=== PATIENT | female | born 2000 | race Caucasian/White ===

== ENCOUNTER 2021-04-21 09:47 | Emergency (ER) | payer SELFPAY ==
[2021-04-21 10:25] LABS: Urine Blood Negative (Negative); Urine Glucose Negative (Negative); Urine Protein Negative (Negative); Urine pH 7.5 (5.0-7.0)
[2021-04-21 10:28] LABS: Hematocrit 40.8 % (36.0-45.0); Lymphocytes % 25.5 % (15.3-44.8); MPV 7.7 fL (7.6-11.3)
[2021-04-21] MEDS ORDERED: ONDANSETRON 4 MG/2 ML VIAL ONE ×2 (10:47→11:31)
[2021-04-21] MEDS ORDERED: MORPHINE 2 MG/ML SYR ONE ×2 (10:47→11:31)
[2021-04-21 10:56] LABS: BUN Blood Urea Nitrogen 12 mg/dL (7-18); Bicarbonate 27 mmol/L (21-32); Glucose Level 92 mg/dL (74-106); Potassium 4.2 mmol/L (3.5-5.1); Sodium Level 137 mmol/L (136-145)
[2021-04-21 10:58] LABS: HCG, Quantitative < 1 mIU/mL (1-3)
--- NOTE | 2021-04-21 11:28 | RAD REPORT ---
EXAM DESCRIPTION: CTAbdomen Pelvis W Contrast - 04/21/2021 11:22 am CLINICAL HISTORY: Abdominal pain. ABD PAIN COMPARISON: No comparisons TECHNIQUE: Biphasic CT imaging of the abdomen and pelvis was performed with 100 ml non-ionic IV cont rast. All CT scans are performed using dose optimization technique as appropriate and may include automated exposure control or mA/KV adjustment according to patient size. FINDINGS: The lung bases are clear. The liver, spleen, pancreas, adrenal glands and kidneys are within normal limits. No bowel obstruction, free air, free fluid or abscess. The appendix is normal. No evidence of signi ficant lymphadenopathy. No suspicious bony findings. IMPRESSION: No acute intra-abdominal or pelvic finding.
[2021-04-21] MEDS ORDERED: DIPHENHYDRAMINE 50 MG/ML VIAL ONE (11:31)
[2021-04-21] MEDS ORDERED: KETOROLAC 30 MG/ML INJ ONE (13:29)
--- NOTE | 2021-04-21 14:00 | RAD REPORT ---
EXAM DESCRIPTION: US - Transvaginal Study Probe - 04/21/2021 1:36 pm CLINICAL HISTORY: ABD PAIN Pelvic pain. COMPARISON: No comparisons FINDINGS: The uterus is normal in size, shape and echotexture. The uterus measures 8.7 cm. The endometrial stripe measures 14 mm, within normal limits Neither ovary was visualized. Small volume of pelvic free fluid. IMPRESSION: Neither ovary visualized due to overlying bowel gas. The uterus is within normal limits. Small volume of free fluid is probably physiologic.
--- NOTE | 2021-04-21 14:04 | ER ---
Nurse's Notes [facility] Name: Elodia Smith Age: 21 yrs Sex: Female : 2000 Arrival Date: 04/21/2021 Time: 09:48 Bed 17 Private MD: Diagnosis: Abdominal pain, Generalized Presentation: 04/21 09:51 Chief complaint: Patient states: "I am a few days late on my period and I took 6 ab2 testes, 4 were positive, 2 were negative. I've been sick for 3 days now and my stomach hurts." Pt c/o n/v and lower abdominal pain. Coronavirus screen: Vaccine status: Patient reports receiving the 2nd dose of the covid vaccine. Client denies travel out of the [place] in the last 14 days. At this time, the client does not indicate any symptoms associated with coronavirus-19. Ebola Screen: Patient negative for fever greater than or equal to 101.5 degrees Fahrenheit, and additional compatible Ebola Virus Disease symptoms Patient denies exposure to infectious person. Patient denies travel to an Ebola-affected area in the 21 days before illness onset. No symptoms or risks identified at this time. Initial Sepsis Screen: Does the patient meet any 2 criteria? No. Patient's initial sepsis screen is negative. Does the patient have a suspected source of infection? No. Patient's initial sepsis screen is negative. Risk Assessment: Do you want to hurt yourself or someone else? Patient reports no desire to harm self or others. Onset of symptoms is unknown. 09:51 Method Of Arrival: Wheelchair ab2 09:51 Acuity: ZULEIKA 3 ab2 Triage Assessment: 09:56 General: Appears in no apparent distress. uncomfortable, Behavior is calm, cooperative, ab2 appropriate for age. Pain: Complains of pain in right lower quadrant and left lower quadrant Pain currently is 7 out of 10 on a pain scale. GI: Reports lower abdominal pain, nausea, vomiting. [employer]: 10:39 1, LMP 03/17/2021 ag7 Historical: - Allergies: 09:55 No Known Allergies; ab2 - Home Meds: 09:55 None [Active]; ab2 - PMHx: 09:55 None; ab2 - PSHx: 09:55 section; ab2 - Immunization history:: Adult Immunizations up to date. - Social history:: Smoking status: Patient denies any tobacco usage or history of. Screenin:38 Abuse screen: Denies threats or abuse. Nutritional screening: No deficits noted. ag7 Tuberculosis screening: No symptoms or risk factors identified. Fall Risk None identified. Assessment: 10:29 General: Appears in no apparent distress. well groomed, Behavior is calm, cooperative, ag7 appropriate for age. Pain: Complains of pain in abdomen Pain does not radiate. Pain currently is 7 out of 10 on a pain scale. Quality of pain is described as sharp, Pain began suddenly, patient reports pain when breathing inwards Is intermittent. Neuro: Level of Consciousness is awake, alert, obeys commands, Oriented to person, place, time, situation, Appropriate for age Buttonhole Marker are equal bilaterally Moves all extremities. Cardiovascular: Heart tones S1 S2 present. Respiratory: Breath sounds are clear bilaterally. GI: Abdomen is round obese, Last BM was April 20, 2021. Last meal was April 20, 2021. Bowel sounds present X 4 quads. Abd is soft Abdomen is tender to palpation in umbilical area, and abdomen diffusely Reports nausea. 11:45 Reassessment: Patient return from cat scan at or about 1130 with chest pain, increased ag7 abd pain 5/10, Benadryl ordered per provider with morphine and zofran. Patient is alert and awake, resp even regular and unlabored, at bedside. 12:30 Reassessment: Patient and/or family updated on plan of care and expected duration. Pain ag7 level reassessed. Patient is alert, oriented x 3, equal unlabored respirations, skin warm/dry/pink. Patient complain abdominal pain is increased 5.5/10. 13:30 Reassessment: Patient appears in no apparent distress at this time. Patient and/or jd3 family updated on plan of care and expected duration. Pain level reassessed. Patient is alert, oriented x 3, equal unlabored respirations, skin warm/dry/pink. Vital Signs: 09:51 BP 126 / 82; Pulse 92; Resp 16; Temp 98.1; Pulse Ox 98% ; Weight 92.99 kg; Height 5 ft. ab2 7 in. (170.18 cm); Pain 7/10; 10:06 BP 128 / 72; Pulse 68; Resp 16 S; Pulse Ox 95% on R/A; Pain 7/10; ag7 11:05 BP 124 / 76; Pulse 66; Resp 16 S; Pulse Ox 97% on R/A; Pain 4/10; ag7 11:30 Pain 4/10; ag7 12:00 BP 113 / 75; Pulse 65; Resp 16; Pulse Ox 94% on R/A; Pain 5/10; ag7 14:23 BP 110 / 69; Pulse 68; Resp 16; Pulse Ox 100% on R/A; Pain 5/10; ag7 09:51 Body Mass Index 32.11 (92.99 kg, 170.18 cm) ab2 ED Course: 09:48 Patient arrived in ED. as 09:49 Shefali Zuluaga FNP-C [facility]. kb 09:49 Cristopher Quinones DO is Attending Physician. kb 09:55 Triage completed. ab2 09:56 Arm band placed on right wrist. ab2 10:28 Brie Ramirez, TAMMIE is Primary Nurse. ag7 10:28 Inserted saline lock: 20 gauge in right antecubital area, using aseptic technique. IV ag7 is patent, is intact, Flushed right antecubital saline lock 10 ml NS. 10:39 Patient has correct armband on for positive identification. Bed in low position. Call ag7 light in reach. 11:22 CT Abd/Pelvis - IV Contrast Only In Process Unspecified. EDMS 13:28 US Transvaginal Study (Probe) In Process Unspecified. EDMS 14:24 No provider procedures requiring assistance completed. ag7 14:26 IV discontinued, intact, bleeding controlled, No redness/swelling at site. Pressure ag7 dressing applied. Administered Medications: 10:52 Drug: Zofran (Ondansetron) 4 mg Route: IVP; Site: right antecubital; ag7 11:30 Follow up: Response: No adverse reaction; Marked relief of symptoms ag7 12:14 Follow up: Response: No adverse reaction ag7 10:53 Drug: morphine 2 mg {Note: RASS 0.} Route: IVP; Site: right antecubital; ag7 11:30 Follow up: Pain 4/10; Response: No adverse reaction; Pain is decreased; RASS: Alert and ag7 Calm (0) 11:42 Drug: morphine 2 mg {Note: rass 0.} Route: IVP; Site: right antecubital; ag7 12:14 Follow up: Response: No adverse reaction; RASS: Light sedation (-2) ag7 11:42 Drug: Zofran (Ondansetron) 4 mg Route: IVP; Site: right antecubital; ag7 12:40 Follow up: Response: No adverse reaction jd3 11:42 Drug: Benadryl (diphenhydrAMINE) 12.5 mg Route: IVP; Site: right antecubital; ag7 12:14 Follow up: Response: No adverse reaction ag7 13:49 Drug: Ketorolac 30 mg Route: IVP; Site: right antecubital; jd3 14:11 Follow up: Response: No adverse reaction; Pain is decreased; RASS: Alert and Calm (0) ag7 Outcome: 14:04 Discharge ordered by . kb 14:24 Discharged to home ambulatory. ag7 14:24 Condition: stable 14:24 Discharge instructions given to patient, significant other, Instructed on discharge instructions, follow up and referral plans. medication usage, Demonstrated understanding of instructions, follow-up care, medications, Prescriptions given X 2. 14:26 Patient left the ED. ag7 Signatures: Dispatcher [employer] EDMS Shefali Zuluaga, ALEXANDR-C PHONOGRAPH NEEDLE TIP MAKER-Minnie Benjamin Jonathon, RN RN Akin Trinh Angela, RN RN ag7
--- NOTE | 2021-04-21 14:04 | EDPHYS ---
Physician Documentation [facility] Name: Elodia Smith Age: 21 yrs Sex: Female : 2000 Arrival Date: 04/21/2021 Time: 09:48 Bed 17 Private MD: ED Physician Cristopher Quinones HPI: 04/21 14:19 This 21 yrs old Female presents to ER via Wheelchair with complaints of Abdominal Pain, kb Nausea. 14:19 The patient presents with abdominal pain that is diffuse. The patient has not recently kb seen a physician. 14:19 Onset: The symptoms/episode began/occurred 3 day(s) ago. The symptoms do not radiate. kb Associated signs and symptoms: Pertinent positives: nausea and vomiting, Pertinent negatives: fever. The symptoms are described as constant. Modifying factors: The symptoms are alleviated by nothing, the symptoms are aggravated by nothing. Severity of pain: At its worst the pain was moderate in the emergency department the pain is unchanged. The patient has not experienced similar symptoms in the past. Pt reports diffuse abd pain, nausea and vomiting for 3 days. States she is 5 days late on her period so isn't sure if she is or not. 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 - Social history:: Smoking status: Patient denies any tobacco usage or history of. ROS: 14:18 Constitutional: Negative for fever, chills, and weight loss. kb 14:18 Abdomen/GI: Positive for abdominal pain, nausea and vomiting. 14:18 All other systems are negative. Exam: 14:18 Constitutional: This is a well developed, well nourished patient who is awake, alert, kb and in no acute distress. Head/Face: Normocephalic, atraumatic. ENT: Moist Mucous membranes Cardiovascular: Regular rate and rhythm with a normal S1 and S2. No gallops, murmurs, or rubs. No pulse deficits. Respiratory: Respirations even and unlabored. No increased work of breathing. Talking in full sentences Skin: Warm, dry with normal turgor. Normal color. MS/ Extremity: Pulses equal, no cyanosis. Neurovascular intact. Full, normal range of motion. Neuro: Awake and alert, GCS 15, oriented to person, place, time, and situation. Moves all extremities. Normal gait. Psych: Awake, alert, with orientation to person, place and time. Behavior, mood, and affect are within normal limits. 14:18 Abdomen/GI: Inspection: abdomen appears normal, Bowel sounds: normal, Palpation: soft, in all quadrants, moderate abdominal tenderness, in all quadrants. Vital Signs: 09:51 BP 126 / 82; Pulse 92; Resp 16; Temp 98.1; Pulse Ox 98% ; Weight 92.99 kg; Height 5 ft. ab2 7 in. (170.18 cm); Pain 7/10; 10:06 BP 128 / 72; Pulse 68; Resp 16 S; Pulse Ox 95% on R/A; Pain 7/10; ag7 11:05 BP 124 / 76; Pulse 66; Resp 16 S; Pulse Ox 97% on R/A; Pain 4/10; ag7 11:30 Pain 4/10; ag7 12:00 BP 113 / 75; Pulse 65; Resp 16; Pulse Ox 94% on R/A; Pain 5/10; ag7 14:23 BP 110 / 69; Pulse 68; Resp 16; Pulse Ox 100% on R/A; Pain 5/10; ag7 09:51 Body Mass Index 32.11 (92.99 kg, 170.18 cm) ab2 MDM: 09:52 Patient medically screened. kb 14:16 Data reviewed: vital signs, nurses notes. Data interpreted: Pulse oximetry: on room air kb is 94 %. Interpretation: normal. Counseling: I had a detailed discussion with the patient and/or guardian regarding: the historical points, exam findings, and any diagnostic results supporting the discharge/admit diagnosis, lab results, radiology results, the need for outpatient follow up, a family practitioner, to return to the emergency department if symptoms worsen or persist or if there are any questions or concerns that arise at home. ED course: Pt sleeping comfortably when I went in to discuss diagnostic results. Pt educated on results and need for outpatient follow up. Pt in agreement with plan of care. . 03/10 09:52 Order name: Abo/rh Typing; Complete Time: 11:21 kb 04/21 09:52 Order name: Basic Metabolic Panel; Complete Time: 11:00 kb 04/21 09:52 Order name: CBC with Diff; Complete Time: 10:36 kb 04/21 09:52 Order name: Quantitative Hcg; Complete Time: 11:00 kb 04/21 10:25 Order name: Urine Dipstick-Ancillary; Complete Time: 10:28 EDMS 04/21 10:28 Order name: Urine --Ancillary (enter results); Complete Time: 10:49 em1 04/21 09:52 Order name: IV Saline Lock; Complete Time: 10:28 kb 04/21 11:00 Order name: CT Abd/Pelvis - IV Contrast Only; Complete Time: 11:31 kb 04/21 12:13 Order name: US Transvaginal Study (Probe); Complete Time: 14:02 kb 04/21 09:52 Order name: Labs collected and sent; Complete Time: 10:28 kb 04/21 09:52 Order name: NPO; Complete Time: 10:04 kb 04/21 09:52 Order name: Urine Dipstick-Ancillary (obtain specimen); Complete Time: 10:28 kb 04/21 09:52 Order name: Urine Test (obtain specimen); Complete Time: 10:28 kb Administered Medications: 10:52 Drug: Zofran (Ondansetron) 4 mg Route: IVP; Site: right antecubital; ag7 11:30 Follow up: Response: No adverse reaction; Marked relief of symptoms ag7 12:14 Follow up: Response: No adverse reaction ag7 10:53 Drug: morphine 2 mg {Note: RASS 0.} Route: IVP; Site: right antecubital; ag7 11:30 Follow up: Pain 4/10; Response: No adverse reaction; Pain is decreased; RASS: Alert and ag7 Calm (0) 11:42 Drug: morphine 2 mg {Note: rass 0.} Route: IVP; Site: right antecubital; ag7 12:14 Follow up: Response: No adverse reaction; RASS: Light sedation (-2) ag7 11:42 Drug: Zofran (Ondansetron) 4 mg Route: IVP; Site: right antecubital; ag7 12:40 Follow up: Response: No adverse reaction jd3 11:42 Drug: Benadryl (diphenhydrAMINE) 12.5 mg Route: IVP; Site: right antecubital; ag7 12:14 Follow up: Response: No adverse reaction ag7 13:49 Drug: Ketorolac 30 mg Route: IVP; Site: right antecubital; jd3 14:11 Follow up: Response: No adverse reaction; Pain is decreased; RASS: Alert and Calm (0) ag7 Disposition: 20:10 Co-signature as Attending Physician, Cristopher Quinones DO I agree with the assessment and ms3 plan of care. Disposition Summary: 04/21/21 14:04 Discharge Ordered Location: Home kb Condition: Stable kb Diagnosis - Abdominal pain, Generalized kb Followup: kb - With: Emergency Department - When: As needed - Reason: Worsening of condition Followup: kb - With: Private Physician - When: 2 - 3 days - Reason: Recheck today's complaints, Continuance of care, Re-evaluation by your physician Discharge Instructions: - Discharge Summary Sheet kb - Abdominal Pain, Adult, [id number] kb Forms: - Medication Reconciliation Form kb - Thank You Letter kb - Antibiotic Education kb - Prescription Opioid Use kb Prescriptions: - Zofran 4 mg Oral Tablet - take 1 tablet by ORAL route every 6 hours As needed; 20 tablet; Refills: 0, kb Product Selection Permitted - dicyclomine 20 mg Oral Tablet - take 1 tablet by ORAL route 4 times per day As needed; 20 tablet; Refills: 0, kb Product Selection Permitted Signatures: Dispatcher [employer] Shefali Lopez, MANAGER INVESTIGATIONS-C MANAGER INVESTIGATIONS-Freddy Hicks RN RN Cristopher Nicole DO DO ms3 Akin Caldwell Angela, RN RN ag7 Corrections: (The following items were deleted from the chart) 14:20 14:18 Abdomen/GI: Positive for abdominal pain, nausea, kb kb
[2021-04-21 14:43] VITALS: TEMP 98.1
[2021-04-21 14:44] VITALS: BP 110/69; O2SAT 100
== END 2021-04-21 14:26 | disposition home or self-care (01) ==
LOC: ER 09:47
DX: R10.84 Generalized abdominal pain (principal); R11.2 Nausea with vomiting, unspecified
CPT/HCPCS: 36415; 74177; 76830; 80048; 81003; 81025; 84702; 85025; 86900; 86901; 96374; 96375; 99284; J1200; J2270; J2405; Q9967

== ENCOUNTER 2022-07-14 15:32 | Emergency (ER) | payer BC ==
[2022-07-14] MEDS ORDERED: NA CHLORIDE 0.9% 1,000 ML ONE (16:39)
[2022-07-14 17:19] LABS: Specific Gravity 1.024 (1.005-1.030)
[2022-07-14 17:22] LABS: Specific Gravity 1.024 (1.005-1.030); Urine Bacteria <20 /HPF (<20); Urine Bilirubin NEGATIVE (Negative); Urine Blood 1+ (Negative); Urine Clarity Turbid (Clear); Urine Color Yellow (Yellow); Urine Glucose NEGATIVE (Negative); Urine Mucus 1+ /HPF (None Seen); Urine Protein TRACE (Negative); Urine Urobilinogen Normal (Normal); Urine pH 5.5 (5.0-7.0)
[2022-07-14 17:37] LABS: SARS-CoV-2 Antigen Rapid Res Negative (Negative)
[2022-07-14 17:43] LABS: Absolute Lymphocytes (CBC) 1.1 K/uL (0.7-4.9); Hematocrit 39.2 % (36.0-45.0); Lymphocytes % 8.5 % (15.3-44.8); MCV 85.2 fL (80-100); MPV 7.3 fL (7.6-11.3)
[2022-07-14 17:58] LABS: Potassium 3.7 mEq/L (3.5-5.1)
[2022-07-14] MEDS ORDERED: KETOROLAC 30 MG/ML INJ ONE (18:26)
--- NOTE | 2022-07-14 18:30 | ER ---
Nurse's Notes [facility] Name: Elodia Arenas Age: 22 yrs Sex: Female : 2000 Arrival Date: 07/14/2022 Time: 15:32 Bed 15 Private MD: Diagnosis: Acute tonsillitis, unspecified Presentation: 07/14 15:39 Chief complaint: Patient states: fever, STEEL and body aches that began yesterday. ss Coronavirus screen: Client denies travel out of the [place] in the last 14 days. Ebola Screen: Patient denies exposure to infectious person. Patient denies travel to an Ebola-affected area in the 21 days before illness onset. Initial Sepsis Screen: Does the patient meet any 2 criteria? No. Patient's initial sepsis screen is negative. Does the patient have a suspected source of infection? No. Patient's initial sepsis screen is negative. Risk Assessment: Do you want to hurt yourself or someone else? Patient reports no desire to harm self or others. Onset of symptoms was July 13, 2022. 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 - Social history:: Smoking status: Patient denies any tobacco usage or history of. Screenin:00 [facility] ED Fall Risk Assessment (Adult) History of falling in the last 3 months, nj1 including since admission No falls in past 3 months (0 pts) Confusion or Disorientation No (0 pts) Intoxicated or Sedated No (0 pts) Impaired Gait No (0 pts) Mobility Assist Device Used No (0 pt) Altered Elimination No (0 pt) Score/Fall Risk Level 0 - 2 = Low Risk Oriented to surroundings, Maintained a safe environment, Hourly rounding (assess needs \T\ fall precautionary measures) done. Abuse screen: Denies threats or abuse. Denies injuries from another. Nutritional screening: No deficits noted. Tuberculosis screening: No symptoms or risk factors identified. Assessment: 16:30 General: Appears in no apparent distress. comfortable, Behavior is calm, cooperative, nj1 appropriate for age. Pain: Complains of pain in Generalized Pain currently is 8 out of 10 on a pain scale. Neuro: Level of Consciousness is awake, alert, obeys commands, Oriented to person, place, time, situation. Cardiovascular: Patient's skin is warm and dry. Respiratory: Airway is patent Respiratory effort is even, unlabored. 16:30 EENT: Reports Sore throat. nj1 17:30 Reassessment: Patient appears in no apparent distress at this time. Patient and/or nj1 family updated on plan of care and expected duration. Pain level reassessed. Patient is alert, oriented x 3, equal unlabored respirations, skin warm/dry/pink. Pain: Complains of pain in Generalized Pain currently is 8 out of 10 on a pain scale. 19:59 Reassessment: Patient appears in no apparent distress at this time. Patient and/or nj1 family updated on plan of care and expected duration. Pain level reassessed. Patient is alert, oriented x 3, equal unlabored respirations, skin warm/dry/pink. Patient states feeling better. Patient states symptoms have improved. Vital Signs: 15:40 BP 106 / 62; Pulse 110; Resp 16; Temp 99.6(O); Pulse Ox 97% on R/A; Weight 99.79 kg; ss Height 5 ft. 7 in. ; Pain 8/10; 17:43 BP 113 / 74; Pulse 105; Resp 16; Pulse Ox 97% ; nj1 18:24 Pulse 106; Resp 18; Temp 100.1(O); Pulse Ox 96% ; nj1 19:59 Temp 98.6(O); nj1 15:40 Body Mass Index 34.46 (99.79 kg, 170.18 cm) ss 15:40 Pain Scale: Adult ss ED Course: 15:35 Patient arrived in ED. mr 15:35 Shefali [facility]uluaga [facility]NP-C [facility]. kb 15:35 Vinay Giles MD is Attending Physician. kb 15:40 Triage completed. ss 15:40 Arm band placed on right wrist. ss 16:18 Jailyn Perez, TAMMIE is Primary Nurse. nj1 16:30 Patient has correct armband on for positive identification. Bed in low position. Call [facility] light in reach. 17:30 Inserted saline lock: 22 gauge in right antecubital area, using aseptic technique. nj1 Blood collected. 19:59 No provider procedures requiring assistance completed. IV discontinued, intact, nj1 bleeding controlled. Administered Medications: 17:30 Drug: NS 0.9% IV 1000 ml Route: IV; Rate: 1000 ml; Site: right antecubital; nj1 19:30 Follow up: Response: No adverse reaction; IV Status: Completed infusion; IV Intake: nj1 1000ml 18:22 Drug: Ketorolac IVP 15 mg Route: IVP; Site: right antecubital; nj1 19:59 Follow up: Response: No adverse reaction nj1 18:54 Drug: Amoxicillin-Clavulanate PO 875 mg Route: PO; nj1 19:59 Follow up: Response: No adverse reaction nj1 18:54 Drug: Acetaminophen PO 1000 mg Route: PO; nj1 19:59 Follow up: Response: No adverse reaction; Temperature is decreased nj1 Medication: 19:59 VIS not applicable for this client. nj1 Intake: 19:30 IV: 1000ml; Total: 1000ml. nj1 Outcome: 18:30 Discharge ordered by . irish 19:59 Discharged to home ambulatory. nj1 19:59 Condition: stable 19:59 Discharge instructions given to patient, Instructed on discharge instructions, follow up and referral plans. medication usage, Demonstrated understanding of instructions, follow-up care, medications, Prescriptions given X 1. 20:00 Patient left the ED. nj1 Signatures: Shefali Zuluaga, OCCUPATIONAL HEALTH PHYSICIAN-C OCCUPATIONAL HEALTH PHYSICIAN-Ckb Courtney Lennon Deepthi Duncan RN RN Jailyn Perez RN RN nj1 Corrections: (The following items were deleted from the chart) 17:44 16:30 Pain: Complains of pain in Generalized nj1 nj1 20:35 20:34 Patient left the ED. nj1 nj1
--- NOTE | 2022-07-14 18:31 | EDPHYS ---
Physician Documentation [facility] Name: Elodia Arenas Age: 22 yrs Sex: Female : 2000 Arrival Date: 07/14/2022 Time: 15:32 Bed 15 Private MD: ED Physician Vinay Giles HPI: 07/14 15:42 This 22 yrs old Female presents to ER via Ambulatory with complaints of Flu Symptoms. kb 15:42 The patient or guardian reports flu symptoms, low-grade fever, myalgias, no appetite. kb Onset: The symptoms/episode began/occurred yesterday. Severity of symptoms: At their worst the symptoms were moderate, in the emergency department the symptoms are unchanged. Modifying factors: The symptoms are alleviated by nothing, the symptoms are aggravated by nothing. Associated signs and symptoms: Pertinent positives: earache, fever, sore throat. The patient has not experienced similar symptoms in the past. The patient has not recently seen a physician. Pt presents for fatigue, malaise, weakness, bodyaches, sore throat, ear pain, headache, and fever that started yesterday. . 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 - Social history:: Smoking status: Patient denies any tobacco usage or history of. ROS: 15:42 Cardiovascular: Negative for chest pain, palpitations, and edema. kb 15:42 Constitutional: Positive for body aches, chills, fatigue, fever, malaise. 15:42 ENT: Positive for ear pain, sore throat. 15:42 Neuro: Positive for headache. Exam: 15:43 Constitutional: This is a well developed, well nourished patient who is awake, alert, kb and in no acute distress. Head/Face: Normocephalic, atraumatic. Cardiovascular: Regular rate and rhythm with a normal S1 and S2. No gallops, murmurs, or rubs. No pulse deficits. Respiratory: Respirations even and unlabored. No increased work of breathing. Talking in full sentences Abdomen/GI: Soft, non-tender. No distention Skin: Warm, dry with normal turgor. Normal color. MS/ Extremity: Pulses equal, no cyanosis. Neurovascular intact. Full, normal range of motion. Neuro: Awake and alert, GCS 15, oriented to person, place, time, and situation. Moves all extremities. Normal gait. 15:43 ENT: TM's: are normal, Posterior pharynx: Airway: normal, no evidence of obstruction, Tonsils: bilaterally enlarged, with erythema, with exudate, Uvula: normal, midline, swelling, that is mild, that is moderate, erythema, that is moderate, exudate, that is mild, that is moderate. Vital Signs: 15:40 BP 106 / 62; Pulse 110; Resp 16; Temp 99.6(O); Pulse Ox 97% on R/A; Weight 99.79 kg; ss Height 5 ft. 7 in. ; Pain 8/10; 17:43 BP 113 / 74; Pulse 105; Resp 16; Pulse Ox 97% ; nj1 18:24 Pulse 106; Resp 18; Temp 100.1(O); Pulse Ox 96% ; nj1 19:59 Temp 98.6(O); nj1 15:40 Body Mass Index 34.46 (99.79 kg, 170.18 cm) ss 15:40 Pain Scale: Adult ss MDM: 15:35 Patient medically screened. kb 15:43 Data reviewed: vital signs, nurses notes. kb 15:43 Differential Diagnosis: Other flu, covid, mono, strep, uri, viral syndrome. kb 18:29 Counseling: I had a detailed discussion with the patient and/or guardian regarding: the kb historical points, exam findings, and any diagnostic results supporting the discharge/admit diagnosis, lab results, radiology results, the need for outpatient follow up, a family practitioner, to return to the emergency department if symptoms worsen or persist or if there are any questions or concerns that arise at home. 07/14 15:41 Order name: CBC with Diff; Complete Time: 17:45 kb 07/14 15:41 Order name: Basic Metabolic Panel; Complete Time: 18:02 kb 07/14 15:41 Order name: Flu; Complete Time: 17:51 kb 07/14 15:41 Order name: [place] Screen Profile; Complete Time: 18:14 kb 07/14 15:41 Order name: Strep; Complete Time: 17:42 kb 07/14 15:41 Order name: SARS-COV-2 Antigen Rapid; Complete Time: 17:42 kb 07/14 15:41 Order name: Test, Urine; Complete Time: 17:30 kb 07/14 15:41 Order name: Urinalysis w/ reflexes; Complete Time: 17:30 kb 07/14 17:27 Order name: Urine Culture [facility] 07/14 17:37 Order name: Throat Culture [facility] 07/14 15:41 Order name: IV Start; Complete Time: 17:45 kb Administered Medications: 17:30 Drug: NS 0.9% IV 1000 ml Route: IV; Rate: 1000 ml; Site: right antecubital; nj1 19:30 Follow up: Response: No adverse reaction; IV Status: Completed infusion; IV Intake: nj1 1000ml 18:22 Drug: Ketorolac IVP 15 mg Route: IVP; Site: right antecubital; nj1 19:59 Follow up: Response: No adverse reaction nj1 18:54 Drug: Amoxicillin-Clavulanate PO 875 mg Route: PO; nj1 19:59 Follow up: Response: No adverse reaction nj1 18:54 Drug: Acetaminophen PO 1000 mg Route: PO; nj1 19:59 Follow up: Response: No adverse reaction; Temperature is decreased nj1 Disposition Summary: 07/14/22 18:30 Discharge Ordered Location: Home kb Condition: Stable kb Diagnosis - Acute tonsillitis, unspecified kb Followup: kb - With: Emergency Department - When: As needed - Reason: Worsening of condition Followup: kb - With: Private Physician - When: 2 - 3 days - Reason: Recheck today's complaints, Continuance of care, Re-evaluation by your physician Discharge Instructions: - Discharge Summary Sheet kb - Tonsillitis, [id number] kb Forms: - Medication Reconciliation Form kb - Thank You Letter kb - Antibiotic Education kb - Prescription Opioid Use kb Prescriptions: - Augmentin 875-125 mg Oral Tablet - take 1 tablet by ORAL route every 12 hours for 10 days; 20 tablet; Refills: 0, kb Product Selection Permitted Signatures: Dispatcher [employer] EDShefali Clifford FNP-C FNP-Ckb Smirch, Shelby RN RN ss Jailyn Perez RN RN nj1
[2022-07-14] MEDS ORDERED: AMOX/K CLAV 875 MG TAB ONE (18:44)
[2022-07-14] MEDS ORDERED: ACETAMINOPHEN 500 MG TAB ONE (18:44)
== END 2022-07-14 20:34 | disposition home or self-care (01) ==
LOC: ER 15:32
DX: J03.90 Acute tonsillitis, unspecified (principal); Z20.822 Contact with and (suspected) exposure to COVID-19
CPT/HCPCS: 96361; 87070; 87088; 85025; 81001; 87086; 80048; 36415; 86308; 81025; 87081; 87804 ×2; 96374; 99284; 87811; J7030

== ENCOUNTER → 2023-04-01 | Emergency (ER) | payer BC, SELFPAY ==
[~2023-04-01] MED LIST: DIPHENHYDRAMINE 50 MG/ML VIAL ONE; KETOROLAC 30 MG/ML INJ ONE; METOCLOPRAMIDE 10 MG/2mL INJ ONE; NA CHLORIDE 0.9% 1,000 ML ONE; NA CHLORIDE 0.9% 100 ML ONE; ONDANSETRON 4 MG/2 ML VIAL ONE
[2023-04-01 23:08] LABS: Absolute Lymphocytes (CBC) 2.5 K/uL (0.7-4.9); Albumin 3.7 g/dL (3.4-5.0); Bilirubin Total 0.4 mg/dL (0.2-1.0); Hematocrit 39.7 % (36.0-45.0); Lymphocytes % 26.5 % (15.3-44.8); MCV 85.3 fL (80-100); MPV 7.6 fL (7.6-11.3); Platelets 365 thou/uL (152-406); Potassium 3.8 mEq/L (3.5-5.1); Protein, Total 7.8 g/dL (6.4-8.2); RBC Red Blood Cell Count 4.65 M/uL (3.86-4.86)
[2023-04-01 23:19] LABS: Specific Gravity 1.013 (1.005-1.030); Urine Bacteria None Seen /HPF (<20); Urine Bilirubin NEGATIVE (Negative); Urine Blood 1+ (Negative); Urine Clarity Clear (Clear); Urine Color Colorless (Yellow); Urine Glucose NEGATIVE (Negative); Urine Mucus Slight /HPF (None Seen); Urine Protein NEGATIVE (Negative); Urine RBC None Seen /HPF (None Seen); Urine Urobilinogen Normal (Normal)
[2023-04-01 23:20] LABS: Specific Gravity 1.014 (1.005-1.030)
--- NOTE | 2023-04-02 00:10 | EDPHYS ---
Physician Documentation [facility] Name: Elodia Arenas Age: 23 yrs Sex: Female : 2000 Arrival Date: 04/01/2023 Time: 21:55 Bed 5 Private MD: ED Physician Feliberto Rocha HPI: 04/01 22:39 This 23 yrs old Female presents to ER via Ambulatory with complaints of Abdominal Pain. sb4 22:39 The patient presents with abdominal pain in the left upper quadrant. Onset: The sb4 symptoms/episode began/occurred this morning. The symptoms do not radiate. Associated signs and symptoms: Pertinent positives: nausea and vomiting. The symptoms are described as sharp. Modifying factors: The symptoms are alleviated by nothing, the symptoms are aggravated by breathing deeply, movement, pressure. The patient has not experienced similar symptoms in the past. The patient has not recently seen a physician. 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 - Social history:: Smoking status: Patient denies any tobacco usage or history of. ROS: 22:39 Constitutional: Negative for fever, chills, and weight loss, sb4 22:39 Abdomen/GI: Positive for abdominal pain, nausea and vomiting, 22:39 All other systems are negative, Exam: 22:39 Constitutional: This is a well developed, well nourished patient who is awake, alert, sb4 and in no acute distress. Head/Face: Normocephalic, atraumatic. Eyes: Extra-ocular motions intact. Periorbital areas with no swelling, redness, or edema. ENT: Mucous membranes moist. Cardiovascular: Regular rate and rhythm with a normal S1 and S2. Respiratory: Lungs have equal breath sounds bilaterally, clear to auscultation and percussion. No rales, rhonchi or wheezes noted. No increased work of breathing, no retractions or nasal flaring. Skin: Warm, dry with normal turgor. Normal color with no rashes, no lesions, and no evidence of cellulitis. MS/ Extremity: Pulses equal, no cyanosis. Neurovascular intact. Full, normal range of motion. Neuro: Awake and alert, GCS 15, oriented to person, place, time, and situation. Motor strength 5/5 in all extremities. Sensory grossly intact. 22:39 Abdomen/GI: Inspection: abdomen appears normal, Bowel sounds: normal, Palpation: soft, moderate abdominal tenderness, in the left upper quadrant, Vital Signs: 22:13 BP 129 / 86; Pulse 90; Resp 16; Temp 97.2(TE); Pulse Ox 100% on R/A; Weight 106.59 kg; tl4 Height 5 ft. 7 in. ; Pain 7/10; 23:30 BP 126 / 81; Pulse 92; Resp 18; Pulse Ox 100% on R/A; km8 04/02 00:27 BP 107 / 65; Pulse 70; Resp 16 S; Pulse Ox 97% on R/A; jw7 04/01 22:13 Body Mass Index 36.81 (106.59 kg, 170.18 cm) tl4 04/01 22:13 Pain Scale: Adult tl4 Nikolas Coma Score: 04/01 22:50 Eye Response: spontaneous(4). Motor Response: obeys commands(6). Verbal Response: km8 oriented(5). Total: 15. MDM: 22:18 Patient medically screened. sb4 23:58 Independent interpretation of the following test(s) in the Emergency Department CT sb4 Scan: My interpretation is my interpretation of the abdomen pelvis CT images are no acute abnormalities. 04/02 00:09 Data reviewed: vital signs, nurses notes, lab test result(s), radiologic studies, and sb4 as a result, I will discharge patient. Counseling: I had a detailed discussion with the patient and/or guardian regarding the historical points, exam findings, and any diagnostic results supporting the discharge/admit diagnosis, lab results, radiology results, to return to the emergency department if symptoms worsen or persist or if there are any questions or concerns that arise at home. 04/01 22:34 Order name: CBC with Diff; Complete Time: 23:12 sb4 04/01 22:34 Order name: CMP; Complete Time: 23:12 sb4 04/01 22:34 Order name: Lipase; Complete Time: 23:12 sb4 04/01 22:34 Order name: Test, Urine; Complete Time: 23:20 sb4 04/01 22:34 Order name: Urinalysis w/ reflexes; Complete Time: 23:20 sb4 04/01 22:34 Order name: CT Abd/Pelvis - IV Contrast Only sb4 04/01 22:34 Order name: IV Saline Lock; Complete Time: 22:39 sb4 04/01 22:34 Order name: Labs collected and sent; Complete Time: 22:39 sb4 Administered Medications: 04/01 22:48 Drug: NS 0.9% IV 1000 ml IV at 1 bolus Per protocol; 1000 mL bolus Route: IV; Rate: 1 km8 bolus; Site: right antecubital; 04/02 00:26 Follow up: IV Status: Completed infusion; IV Intake: 1000ml [facility] 04/01 22:48 Drug: TORadol - Ketorolac IVP 15 mg IVP once Route: IVP; Site: right antecubital; [facility] 23:46 Follow up: Response: No adverse reaction [facility] 22:48 Drug: Ondansetron IVP 4 mg IVP once; over 2 minutes Route: IVP; Site: right antecubital;8 23:46 Follow up: Response: No adverse reaction [facility] 23:46 Drug: diphenhydrAMINE IVP 25 mg IVP once Route: IVP; Site: right antecubital; km8 04/02 00:26 Follow up: Response: No adverse reaction [facility] 04/01 23:46 Drug: metoCLOPramide IVP 10 mg IVP once; over 1 to 2 minutes Route: IVP; Site: right [facility] antecubital; 04/02 00:26 Follow up: Response: No adverse reaction [facility] Disposition: 20:52 Co-signature as Attending Physician, Feliberto Rocha MD I agree with the assessment sp4 and plan of care. I reviewed the patient's care provided by the Advanced Practice Provider and agree with the diagnosis and treatment plan. Disposition Summary: 04/02/23 00:09 Discharge Ordered Notes: Location: Home sb4 Problem: new sb4 Symptoms: are unchanged sb4 Condition: Stable sb4 Diagnosis - Upper abdominal pain, unspecified sb4 Followup: sb4 - With: Emergency Department - When: As needed - Reason: Trouble breathing, Worsening of condition Discharge Instructions: - Discharge Summary Sheet sb4 - Abdominal Pain, Adult sb4 Forms: - Thank You Letter sb4 - Patient Portal Instructions sb4 - Leadership Thank You Letter sb4 Signatures: Dispatcher [employer] Deana Sotelo, LOTTIE TAFOYA sb4 Feliberto Rocha MD MD sp4 Ailyn Lazaro RN RN km8 Chace Kahn RN RN tl4 Corrections: (The following items were deleted from the chart) 04/01 23:58 22:16 Home Meds: None; tl4 km8
--- NOTE | 2023-04-02 00:10 | ER ---
Nurse's Notes [facility] Name: Elodia Arenas Age: 23 yrs Sex: Female : 2000 Arrival Date: 04/01/2023 Time: 21:55 Bed 5 Private MD: Diagnosis: Upper abdominal pain, unspecified Presentation: 04/01 22:13 Chief complaint: Patient states: Pt c/o progressively worsening non-radiating, tl4 non-reproducible sharp pain under her left ribs, nausea, and vomiting since 0600 today. Pt states pain increases with deep inspiration. Coronavirus screen: At this time, the client does not indicate any symptoms associated with coronavirus-19. Ebola Screen: No symptoms or risks identified at this time. Initial Sepsis Screen: Does the patient meet any 2 criteria? No. Patient's initial sepsis screen is negative. Does the patient have a suspected source of infection? No. Patient's initial sepsis screen is negative. Risk Assessment: Do you want to hurt yourself or someone else? Patient reports no desire to harm self or others. Onset of symptoms was April 01, 2023 at 06:00. 22:13 Method Of Arrival: Ambulatory tl4 22:13 Acuity: ZULEIKA 3 tl4 Triage Assessment: 22:17 General: Appears uncomfortable, Behavior is calm, cooperative. Pain: Complains of pain tl4 in abdomen. EENT: No deficits noted. No signs and/or symptoms were reported regarding the EENT system. Neuro: No deficits noted. Cardiovascular: No deficits noted. Respiratory: No deficits noted. GI: Reports upper abdominal pain, nausea, vomiting. : No deficits noted. No signs and/or symptoms were reported regarding the genitourinary system. Derm: No deficits noted. No signs and/or symptoms reported regarding the dermatologic system. Musculoskeletal: No deficits noted. No signs and/or symptoms reported regarding the musculoskeletal system. 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 - Social history:: Smoking status: Patient denies any tobacco usage or history of. Screenin:20 [facility] ED Fall Risk Assessment (Adult) History of falling in the last 3 months, jw7 including since admission No falls in past 3 months (0 pts) Score/Fall Risk Level 0 - 2 = Low Risk Oriented to surroundings, Maintained a safe environment, Educated pt \T\ family on fall prevention, incl call for assistance when getting out of bed. Abuse screen: Denies threats or abuse. Denies injuries from another. Nutritional screening: No deficits noted. Tuberculosis screening: No symptoms or risk factors identified. Assessment: 22:20 General: See Triage Assessment. jw7 22:20 GI: Bowel sounds present X 4 quads. Abd is soft X 4 quads Abdomen is tender to jw7 palpation in right upper quadrant. 22:50 General: Appears in no apparent distress. comfortable, Behavior is calm, cooperative, km8 appropriate for age. Pain: Complains of pain in left upper quadrant Pain currently is 7 out of 10 on a pain scale. Neuro: Level of Consciousness is awake, alert, obeys commands, Oriented to person, place, time, situation. Cardiovascular: Denies chest pain, shortness of breath, Capillary refill < 3 seconds Patient's skin is warm and dry. Respiratory: Airway is patent Respiratory effort is even, unlabored, Respiratory pattern is regular, symmetrical. GI: Abdomen is non-distended, Bowel sounds present X 4 quads. Abd is soft Abdomen is tender to palpation in left upper quadrant Reports nausea, vomiting. : No signs and/or symptoms were reported regarding the genitourinary system. EENT: No signs and/or symptoms were reported regarding the EENT system. Derm: No signs and/or symptoms reported regarding the dermatologic system. Skin is intact, is healthy with good turgor, Skin is dry, Skin is pink, warm \T\ dry. normal, Skin temperature is warm. Musculoskeletal: No signs and/or symptoms reported regarding the musculoskeletal system. Circulation, motion, and sensation intact. Range of motion: intact in all extremities. 23:30 Reassessment: Patient appears in no apparent distress at this time. Patient and/or km8 family updated on plan of care and expected duration. Pain level reassessed. Patient is alert, oriented x 3, equal unlabored respirations, skin warm/dry/pink. pt reports SOB after CT scan; COLLEEN Bryan notified, medications ordered. 04/02 00:26 Reassessment: Patient appears in no apparent distress at this time. Patient and/or km8 family updated on plan of care and expected duration. Pain level reassessed. Patient is alert, oriented x 3, equal unlabored respirations, skin warm/dry/pink. Patient states symptoms have improved. Vital Signs: 04/01 22:13 BP 129 / 86; Pulse 90; Resp 16; Temp 97.2(TE); Pulse Ox 100% on R/A; Weight 106.59 kg; tl4 Height 5 ft. 7 in. ; Pain 7/10; 23:30 BP 126 / 81; Pulse 92; Resp 18; Pulse Ox 100% on R/A; km8 04/02 00:27 BP 107 / 65; Pulse 70; Resp 16 S; Pulse Ox 97% on R/A; jw7 04/01 22:13 Body Mass Index 36.81 (106.59 kg, 170.18 cm) tl4 04/01 22:13 Pain Scale: Adult tl4 Nikolas Coma Score: 04/01 22:50 Eye Response: spontaneous(4). Motor Response: obeys commands(6). Verbal Response: km8 oriented(5). Total: 15. ED Course: 22:03 Patient arrived in ED. gm2 22:05 Deana Naidu PA-C is PHCP. sb4 22:05 Feliberto Rocha MD is Attending Physician. sb4 22:16 Triage completed. tl4 22:16 Arm band placed on right wrist. tl4 22:20 Patient has correct armband on for positive identification. Bed in low position. Call [facility] light in reach. 22:45 Inserted saline lock: 20 gauge in right antecubital area, using aseptic technique. km8 Blood collected. 22:47 Ailyn Lazaro, TAMMIE is Primary Nurse. 8 22:47 CBC with Diff Sent. 22:47 CMP Sent. 8 22:47 Lipase Sent. 8 22:47 Test, Urine Sent. 8 22:47 Urinalysis w/ reflexes Sent. 8 22:48 No provider procedures requiring assistance completed. km8 22:50 Pulse ox on. NIBP on. Warm blanket given. km8 22:50 Patient maintains SpO2 saturation greater than 95% on room air. km8 23:33 CT Abd/Pelvis - IV Contrast Only In Process Unspecified. EDMS 04/02 00:27 Provided Education on: d/c teaching. 00:27 IV discontinued, intact, bleeding controlled, No redness/swelling at site. Pressure km8 dressing applied. Administered Medications: 04/01 22:48 Drug: NS 0.9% IV 1000 ml IV at 1 bolus Per protocol; 1000 mL bolus Route: IV; Rate: 1 km8 bolus; Site: right antecubital; 04/02 00:26 Follow up: IV Status: Completed infusion; IV Intake: 1000ml 8 04/01 22:48 Drug: TORadol - Ketorolac IVP 15 mg IVP once Route: IVP; Site: right antecubital; km8 23:46 Follow up: Response: No adverse reaction 8 22:48 Drug: Ondansetron IVP 4 mg IVP once; over 2 minutes Route: IVP; Site: right antecubital;km8 23:46 Follow up: Response: No adverse reaction 23:46 Drug: diphenhydrAMINE IVP 25 mg IVP once Route: IVP; Site: right antecubital; km8 04/02 00:26 Follow up: Response: No adverse reaction 8 04/01 23:46 Drug: metoCLOPramide IVP 10 mg IVP once; over 1 to 2 minutes Route: IVP; Site: right 8 antecubital; 04/02 00:26 Follow up: Response: No adverse reaction Medication: 04/01 22:48 VIS not applicable for this client. km8 Intake: 04/02 00:26 IV: 1000ml; Total: 1000ml. km8 Outcome: 00:09 Discharge ordered by . chau 00:28 Discharged to home ambulatory, jw7 00:28 Condition: stable 00:28 Discharge instructions given to patient, Instructed on discharge instructions, follow up and referral plans. Demonstrated understanding of instructions, follow-up care, 00:29 Patient left the ED. jw7 Signatures: Dispatcher [employer] EDMS Maritza York RN RN jw7 Deana Naidu PA-C PAKailee [email or web address] Nicolasa [facility] Ailyn Lazaro RN RN km8 Chace Kahn RN RN tl4 Corrections: (The following items were deleted from the chart) 04/01 23:56 23:30 Reassessment: Patient appears in no apparent distress at this time. No changes km8 from previously documented assessment. Patient and/or family updated on plan of care and expected duration. Pain level reassessed. Patient is alert, oriented x 3, equal unlabored respirations, skin warm/dry/pink. km8 23:58 22:16 Home Meds: None; tl4 km8
[2023-04-02 00:55] VITALS: BP 107/65; TEMP 97.2; O2SAT 97
--- NOTE | 2023-04-02 12:37 | RAD REPORT ---
EXAM DESCRIPTION: CT - Abdomen Pelvis W Contrast - 04/02/2023 6:34 am CLINICAL HISTORY: Female, 23 years old, ABD PAIN COMPARISON: 04/21/2021 TECHNIQUE: CT acquisition of the abdomen and pelvis following the administration of IV contrast. Cor onal and sagittal reformatted images provided. This exam was performed according to departmental dose -optimization program which includes automated exposure control, adjustment of the mA and/or kV accor ding to patient size, and/or use of iterative reconstruction technique. FINDINGS: SUPPORTIVE DEVICES: None. LOWER CHEST: No significant abnormality within the lower chest. ABDOMEN AND PELVIS: Suboptimal contrast bolus timing further limits evaluation of the abdominal and pelvic viscera and va scular structures. Liver: Diffuse hypoenhancement relative to the spleen. Gallbladder and bile ducts: Unremarkable. Pancreas: Unremarkable. Spleen: Parenchymal calcifications. Adrenal glands: Unremarkable. Kidneys and ureters: No evidence of stone or obstruction. Bladder: Nondistended without evident abnormality. Reproductive organs: Unremarkable. GI tract: Normal caliber without wall thickening. Normal appendix. Lymph nodes: No obvious adenopathy. Peritoneum: No evidence of ascites, fluid collection, or free air. Abdominal wall: No significant hernia. Vessels: Unremarkable. MUSCULOSKELETAL: No acute osseous abnormality. IMPRESSION: No acute abdominopelvic finding. Electronically signed by: Abiel Mcnally MD 04/02/2023 12:01 AM DIRECTOR EMERGENCY DEPARTMENT Due to temporary technical issues with the PACS/Fluency reporting system, reports are being signed by the in house radiologist without review as a courtesy to ensure prompt reporting. The interpreting r adiologist is fully responsible for the content of the report.
== END ==
LOC: ER 21:55
DX: R10.12 Left upper quadrant pain (principal)
CPT/HCPCS: 36415; 74177; 80053; 81001; 81025; 83690; 85025; 96361; 96374; 96375; 99285; J1200; J2405; J2765; J7030